=== PATIENT | male | born 1975 | race Caucasian/White ===

== ENCOUNTER → 2021-08-13 | Outpatient (CLI) | payer OTHER ==
[~2021-08-13] MED LIST: BUSP10TA PO; FLUO40CA PO; OMEP40CA5 PO; PROHANCE 279.3MG/ML 15ML VIAL As Ordered ONE; PROHANCE 279.3MG/ML 5ML VIAL As Ordered ONE; TRAZ-257 PO
== END ==
LOC: M RAD 07:42
PROVIDERS: ATTEND Otolaryngology
DX: R22.1 Localized swelling, mass and lump, neck (principal)
CPT/HCPCS: 70543; A9576

== ENCOUNTER → 2021-10-17 | Outpatient (CLI) | payer OTHER ==
[~2021-10-17] MED LIST changes: -PROHANCE 279.3MG/ML 15ML VIAL As Ordered ONE; -PROHANCE 279.3MG/ML 5ML VIAL As Ordered ONE
== END ==
LOC: M RAD 13:38
PROVIDERS: ATTEND Otolaryngology
DX: R22.1 Localized swelling, mass and lump, neck (principal)